=== PATIENT | female | born 2000 | race Two or more races ===

== ENCOUNTER 2024-07-03 07:03 | Inpatient (IN) | payer SELFPAY ==
[2024-07-03] MEDS ORDERED: Nalbuphine 10 MG/ML Syringe IVPUSH PRN (08:02)
[2024-07-03] MEDS ORDERED: Lidocaine 1% 50 ML MDV INJECT PRN (08:02)
[2024-07-03 08:21] LABS: BASOPHILS PERCENT AUTO 0.3 % (0.0-1.0); EOSINOPHILS ABSOLUTE AUTO 0.1 K/mm3 (0.0-0.4); EOSINOPHILS PERCENT AUTO 1.7 % (0.0-6.0); HEMATOCRIT 30.9 % (37.0-47.0); HEMOGLOBIN 10.1 gm/dl (12.0-16.0); IMMATURE GRAN ABSOLUTE AUTO 0.06 K/mm3 (0.00-0.05); IMMATURE GRAN PERCENT AUTO 0.9 % (0.0-0.4); LYMPHOCYTES PERCENT AUTO 31.8 % (24.0-44.0); MEAN CORPUSCULAR HGB CONC 32.7 g/dl (32.0-36.0); MEAN CORPUSCULAR VOLUME 88.8 fl (83.0-99.0); MEAN PLATELET VOLUME 10.9 fl (9.4-12.3); MONOCYTES ABSOLUTE AUTO 0.5 K/mm3 (0.0-0.8); MONOCYTES PERCENT AUTO 8.2 % (0.0-8.0); NEUTROPHILS ABSOLUTE AUTO 3.6 K/mm3 (1.8-7.7); NEUTROPHILS PERCENT AUTO 57.1 % (41.0-71.0); PLATELET COUNT,PLT 207 K/mm3 (150-400); RED BLOOD CELL COUNT 3.48 M/mm3 (4.10-5.30); WHITE BLOOD CELL COUNT,WBC 6.35 K/mm3 (3.9-11.3)
[2024-07-03] MEDS: Lactated Ringers 1,000 ML IV SCH (08:46)
[2024-07-03] MEDS: Oxytocin/0.9 % Sodium Chloride 30 UNIT/500 ML BAG IV SCH ×2 (08:51→16:48)
[2024-07-03] MEDS: Nalbuphine 10 MG/1 ML Vial IVPUSH PRN (11:02)
[2024-07-03] MEDS ORDERED: diphenhydrAMINE 50 MG/ML SDV IVPUSH PRN (15:17)
[2024-07-03] MEDS ORDERED: Bupivacaine/fentaNYL/NS 100 ML Bag EPIDUR PRN (15:17)
[2024-07-03] MEDS ORDERED: fentaNYL 100 MCG/2 ML SDV EPIDUR PRN (15:17)
[2024-07-03] MEDS ORDERED: ePHEDrine 50 MG/ML SDV IVPUSH PRN (15:17)
[2024-07-03] MEDS ORDERED: Ibuprofen 600 MG Tab PO PRN (17:34)
[2024-07-03] MEDS ORDERED: Witch Hazel Medicated Pads 40/Jar TOP PRN (17:34)
[2024-07-03] MEDS ORDERED: Benzocaine/Menthol 20%-0.5% Spray 78 GM Cannister TOP PRN (17:34)
[2024-07-03] MEDS: Acetaminophen 325 MG Tab PO SCH (20:02)
[2024-07-04] MEDS ORDERED: Bupivacaine 0.25% 10 ML SDV ONE
== END 2024-07-04 18:35 | disposition home or self-care (01) | DRG 807 ==
LOC: JD.OB 07:03 → EDBD 07:03 → OBSVTOIN 16:47 → JD.OB 16:47
PROVIDERS: ADMIT Obstetrics & Gynecology; ATTEND Obstetrics & Gynecology
PROC: 10E0XZZ Delivery of Products of Conception, External Approach (ICD-10-PCS; principal; 2024-07-03)
PROC: 0HQ9XZZ Repair Perineum Skin, External Approach (ICD-10-PCS; 2024-07-03)
PROC: 3E0R3BZ Introduction of Anesthetic Agent into Spinal Canal, Percutaneous Approach (ICD-10-PCS; 2024-07-03)
PROC: 00HU33Z Insertion of Infusion Device into Spinal Canal, Percutaneous Approach (ICD-10-PCS; 2024-07-03)
PROC: 3E033VJ Introduction of Other Hormone into Peripheral Vein, Percutaneous Approach (ICD-10-PCS; 2024-07-03)
DX: O70.0 First degree perineal laceration during delivery (principal); Z37.0 Single live birth; Z3A.39 39 weeks gestation of pregnancy
CPT/HCPCS: 36415; 51701; 59025; 59409; 85025; 86592; 86850; 86900; 86901; C1758; J0665; J2300; J7120; J7999

== ENCOUNTER 2025-05-30 11:58 | Emergency (ER) | payer SELFPAY ==
[2025-05-30 12:45] LABS: BASOPHILS PERCENT AUTO 0.2 % (0.0-1.0); EOSINOPHILS ABSOLUTE AUTO 0.2 K/mm3 (0.0-0.4); EOSINOPHILS PERCENT AUTO 4.1 % (0.0-6.0); HEMATOCRIT 38.8 % (37.0-47.0); IMMATURE GRAN ABSOLUTE AUTO 0.01 K/mm3 (0.00-0.05); IMMATURE GRAN PERCENT AUTO 0.2 % (0.0-0.4); LYMPHOCYTES ABSOLUTE AUTO 1.7 K/mm3 (1.0-4.8); LYMPHOCYTES PERCENT AUTO 37.1 % (24.0-44.0); MEAN CORPUSCULAR HEMOGLOBIN 30.7 pg (28.0-32.0); MEAN CORPUSCULAR HGB CONC 34.3 g/dl (32.0-36.0); MEAN CORPUSCULAR VOLUME 89.6 fl (83.0-99.0); MEAN PLATELET VOLUME 10.3 fl (9.4-12.3); MONOCYTES ABSOLUTE AUTO 0.4 K/mm3 (0.0-0.8); NEUTROPHILS ABSOLUTE AUTO 2.3 K/mm3 (1.8-7.7); NEUTROPHILS PERCENT AUTO 50.4 % (41.0-71.0); PLATELET COUNT,PLT 254 K/mm3 (150-400); RED BLOOD CELL COUNT 4.33 M/mm3 (4.10-5.30); WHITE BLOOD CELL COUNT,WBC 4.63 K/mm3 (3.9-11.3)
[2025-05-30 12:51] LABS: HEMOGLOBIN 13.3 gm/dl (12.0-16.0)
[2025-05-30 13:04] LABS: APPEARANCE,URINE CLEAR (Clear); BILIRUBIN,URINE NEGATIVE (Negative); COLOR,URINE YELLOW (Yellow); GLUCOSE,URINE NEGATIVE (Negative); KETONES,URINE NEGATIVE (Negative); LEUKOCYTE ESTERASE,URINE NEGATIVE (Negative); NITRITE,URINE NEGATIVE (Negative); OCCULT BLOOD,URINE NEGATIVE (Negative); PROTEIN,URINE 1+ (Negative); UROBILINOGEN,URINE 0.2 (0.2-1.0)
[2025-05-30 13:23] LABS: A/G RATIO 1.1 (1-2); ALBUMIN 3.9 g/dl (3.4-5.0); BILIRUBIN TOTAL 0.7 mg/dL (0.2-1.0); BUN/CREATININE RATIO 11.7 (14-18); CREATININE 0.6 mg/dL (0.55-1.02); EST CRCL DRUG DOSING (CG) 121.66 mL/min; PROTEIN TOTAL,TP 7.5 g/dl (6.4-8.2)
[2025-05-30 13:29] LABS: BACTERIA,URINE FEW /hpf (FEW); MUCUS,URINE MANY /hpf (FEW); RBC,URINE 0-5 /hpf (0-5); WBC,URINE 0-5 /hpf (0-5)
== END 2025-05-30 15:24 | disposition home or self-care (01) ==
LOC: JD.ED 11:58
DX: O99.891 Other specified diseases and conditions complicating pregnancy (principal); R10.32 Left lower quadrant pain; Z79.899 Other long term (current) drug therapy; Z3A.01 Less than 8 weeks gestation of pregnancy
CPT/HCPCS: 36415; 76817; 76817-26; 80053; 81001; 84702; 84703; 85025; 99284

== ENCOUNTER 2025-06-19 17:30 | Emergency (ER) | payer SELFPAY ==
[~2025-06-19 17:30] MED LIST: Ondansetron 4 MG/2 ML SDV ONE
[2025-06-19] MEDS ORDERED: Sodium Chloride 0.9% 10 ML Syringe FLUSH PRN (17:32)
[2025-06-19 17:45] LABS: BASOPHILS ABSOLUTE AUTO 0.0 K/mm3 (0.0-0.2); BASOPHILS PERCENT AUTO 0.3 % (0.0-1.0); EOSINOPHILS ABSOLUTE AUTO 0.0 K/mm3 (0.0-0.4); EOSINOPHILS PERCENT AUTO 0.4 % (0.0-6.0); IMMATURE GRAN ABSOLUTE AUTO 0.03 K/mm3 (0.00-0.05); IMMATURE GRAN PERCENT AUTO 0.4 % (0.0-0.4); LYMPHOCYTES ABSOLUTE AUTO 2.2 K/mm3 (1.0-4.8); LYMPHOCYTES PERCENT AUTO 28.3 % (24.0-44.0); MEAN PLATELET VOLUME 10.2 fl (9.4-12.3); MONOCYTES ABSOLUTE AUTO 0.5 K/mm3 (0.0-0.8); MONOCYTES PERCENT AUTO 6.4 % (0.0-8.0); NEUTROPHILS ABSOLUTE AUTO 5.0 K/mm3 (1.8-7.7); NEUTROPHILS PERCENT AUTO 64.2 % (41.0-71.0); NRBC ABSOLUTE 0.00 (0.00-0.02); NRBC PERCENT 0.0 % (0.0-0.2); PLATELET COUNT,PLT 263 K/mm3 (150-400); RED BLOOD CELL COUNT 4.89 M/mm3 (4.10-5.30); WHITE BLOOD CELL COUNT,WBC 7.71 K/mm3 (3.9-11.3)
[2025-06-19 17:48] LABS: APPEARANCE,URINE CLEAR (Clear); GLUCOSE,URINE NEGATIVE (Negative); OCCULT BLOOD,URINE NEGATIVE (Negative)
[2025-06-19 17:57] LABS: BUPRENORPHINE SCREEN,URINE NEGATIVE (CUTOFF=10); METHADONE SCREEN, URINE NEGATIVE (CUTOFF=200); METHAMPHETAMINES SCREEN, URINE NEGATIVE (CUTOFF=500); OXYCODONE SCREEN,URINE NEGATIVE (CUT0FF=100); THC SCREEN,URINE 20 NG/ML NEGATIVE (CUTOFF=50)
[2025-06-19 18:06] LABS: AMPHETAMINES SCREEN, URINE NEGATIVE (CUTOFF=500)
[2025-06-19 18:06] LABS: A/G RATIO 1.1 (1-2); ALANINE AMINOTRANSFERASE,ALT 34 U/L (14-59); ASPARTATE AMNIOTRANSFERASE,AST 16 U/L (15-37); BILIRUBIN TOTAL 0.7 mg/dL (0.2-1.0); BLOOD UREA NITROGEN,BUN 5 mg/dL (7-18); CARBON DIOXIDE,CO2 22 mEq/L (21-32); CHLORIDE,CL 104 mEq/L (98-107); CREATININE 0.6 mg/dL (0.55-1.02); ESTIMATED GFR 130 mL/min (>60); GLUCOSE RANDOM 92 mg/dL (70-99); POTASSIUM,K 3.6 mEq/L (3.5-5.1); PROTEIN TOTAL,TP 8.3 g/dl (6.4-8.2); SODIUM,NA 139 mEq/L (136-145)
[2025-06-19 18:18] LABS: ETHANOL BLOOD MEDICAL 0.00 gm% (0.00)
[2025-06-19] MEDS: Ondansetron 4 MG/2 ML SDV IVPUSH ONE (20:02)
== END 2025-06-20 07:55 | disposition home or self-care (01) ==
LOC: JD.ED 17:30
DX: S51.812A Laceration without foreign body of left forearm, initial encounter (principal); F32.A Depression, unspecified; W45.8XXA Other foreign body or object entering through skin, initial encounter
CPT/HCPCS: 12002; 36415; 71045; 80053; 80143; 80179; 80306; 80307; 81003; 84703; 85025; 93005; 96361; 96374; 96375; 99285; C1758; J2003; J2312; J2405; J7030; 93010